=== PATIENT | male | born 1970 | race Two or more races ===

== ENCOUNTER 2018-02-03 11:50 | Emergency (ER) | payer OTHER, MEDICAID ==
[2018-02-03] MEDS ORDERED: OLANZapine 10 MG/2 ML VIAL ONE (11:57)
[2018-02-03 12:21] LABS: PLATELET COUNT 193 10^3/uL (150-400)
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
[2018-02-03 13:03] VITALS: O2SAT 92
[2018-02-03] MEDS ORDERED: HALOPERIDOL LACT 5 MG/ML INJ IM ONE (13:29)
[2018-02-03] MEDS ORDERED: HALOPERIDOL LACT 5 MG/ML INJ ONE (13:30)
[2018-02-03] MEDS ORDERED: OLANZapine DISINTEGR 10 MG TAB PO ONE (13:46)
[2018-02-03] MEDS ORDERED: OLANZapine DISINTEGR 10 MG TAB ONE (13:47)
[2018-02-03 16:26] VITALS: RESP 16
[2018-02-03 23:26] VITALS: BP 131/80; PULSE 91; TEMP 98.4
== END 2018-02-04 00:23 ==
DX: F31.4 Bipolar disorder, current episode depressed, severe, without psychotic features (principal); Z79.4 Long term (current) use of insulin
CPT/HCPCS: 99285; J1630; 80305; G0480

== ENCOUNTER 2018-05-02 12:24 | Emergency (ER) | payer OTHER, MEDICAID ==
[2018-05-02 12:37] VITALS: BP 102/62
[2018-05-02 12:44] LABS: PLATELET COUNT 196 10^3/uL (150-400)
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
[2018-05-02] MEDS ORDERED: HALOPERIDOL LACT 5 MG/ML INJ IM ONE (14:07)
== END 2018-05-02 15:34 ==
LOC: EDUNIT#
DX: F31.30 Bipolar disorder, current episode depressed, mild or moderate severity, unspecified (principal); E11.9 Type 2 diabetes mellitus without complications; I10 Essential (primary) hypertension; Z79.4 Long term (current) use of insulin
CPT/HCPCS: 96372; 99285; J1630; G0480

== ENCOUNTER 2018-06-04 22:13 | Emergency (ER) | payer OTHER, MEDICAID ==
[2018-06-04 22:43] LABS: PLATELET COUNT 206 10^3/uL (150-400)
[2018-06-04] MEDS ORDERED: MAG HYDROX/AL HYDROX/SIMETH 30 ML UDCUP PO ONE (23:39)
[2018-06-04] MEDS ORDERED: HYOSCYAMINE SULFATE 0.125 MG TAB PO ONE (23:39)
[2018-06-04] MEDS ORDERED: FAMOTIDINE 20 MG TAB PO ONE (23:39)
[2018-06-04] MEDS ORDERED: LIDOCAINE 2% VISCOUS 15 ML UDCUP PO ONE (23:39)
--- NOTE | 2018-06-04 23:43 | EDPHY ---
H & P Smoking Status: Never smoked Time Seen by Provider: 06/04/18 23:32 HPI/ROS: CHIEF COMPLAINT: Abdominal pain HISTORY OF PRESENT ILLNESS: 48-year-old male presents to the emergency department in custody of the correction he with abdominal pain. The patient states that he noted the pain shortly after lunch. He has had problems with GERD in the past. He did try an acid in correction which did improve his symptoms but then symptoms came back after he ate dinner. He denies any reported trauma. He did vomit once today right after lunch. No diarrhea. No hematemesis. No back pain. No chest pain or difficulty breathing. REVIEW OF SYSTEMS: Constitutional: No fever, no chills. Eyes: No double or blurry vision. ENT: No sore throat. Respiratory: No cough, no shortness of breath. Cardiac: No chest pain. Gastrointestinal: Abdominal pain. One episode of vomiting. No diarrhea Genitourinary: No dysuria. Musculoskeletal: No neck or back pain. Skin: No rashes. Neurological: No headache. (Anne Dinh) Past Medical/Surgical History: GERD, insulin-dependent diabetes, hypertension, bipolar, ADD, hepatitis C (Anne Dinh) Social History: Currently in correction (Anne Dinh) Physical Exam: General Appearance: Alert, no distress. Eyes: Pupils equal and round. Extraocular motions are all intact. ENT: Mouth: Mucous membranes moist. Respiratory: No wheezing, rhonchi, or rales, lungs are clear to auscultation. Cardiovascular: Regular rate and rhythm. Gastrointestinal: Abdomen is soft. Tenderness with palpation the epigastric area. There is no rebound, guarding or masses noted. No CVA tenderness bilaterally. Neurological: Alert and oriented x 3, cranial nerves II through XII grossly intact Skin: Warm and dry, no rashes. Musculoskeletal: Nontender to palpate along the cervical, thoracic or lumbar spine. Neck is supple. Extremities: Full range of motion and no peripheral edema. Psychiatric: Patient is oriented X 3, there is no agitation. (Anne Dinh) Constitutional: Initial Vital Signs Temperature (C) 36.7 C 06/04/18 22:18 Heart Rate 122 H 06/04/18 22:18 Respiratory Rate 20 06/04/18 22:18 Blood Pressure 158/119 H 06/04/18 22:18 O2 Sat (%) 95 06/04/18 22:18 O2 Delivery Mode Room Air Allergies/Adverse Reactions: No Known Allergies Allergy (Verified 06/04/18 22:18) Home Medications: Medication Instructions Recorded Insulin Regular, Human 02/03/18 Lisinopril 02/03/18 Clotrimazole 1% 06/04/18 Gabapentin 06/04/18 Geodon 06/04/18 Lipitor 06/04/18 Pepto-Bismol 06/04/18 Tums 500MG (*) 06/04/18 Zoloft 25mg (*) 06/04/18 Medical Decision Making ED Course/Re-evaluation: 48-year-old male presents to the emergency department with abdominal pain. The patient was given GI cocktail and his symptoms had completely resolved. Laboratory studies including CBC, chemistries, LFTs are all within normal limits. Patient was also given 20 mg of Pepcid p. O. In the emergency department. He will continue this daily the next 2 weeks. He was given GI referral if his symptoms do not improve. He was instructed to return to the emergency department sooner if he developed increasing pain or any other concerns. I do not think imaging studies are indicated. Patient has a benign abdomen. ( Anne Dinh) PHYSICIAN DOCUMENTATION: The patient was evaluated and managed by the Physician Glass [employer]rier. My co- signature indicates that I have reviewed this chart and I agree with the findings and plan of care as documented. I am the secondary supervising physician. (Jada Zavala) Differential Diagnosis: Including but not limited to GERD, peptic ulcer disease, cholecystitis, cholelithiasis, hepatitis (Anne Dinh) - Data Points Laboratory Results: Laboratory Results 06/04/18 22:32 06/04/18 22:32 Medications Given: Discontinued Medications Al Hydroxide/Mg Hydroxide (Maalox Susp) 30 ml PO ONCE ONE Stop: 06/04/18 23:40 Last Admin: 06/04/18 23:47 Dose: 30 ml Famotidine (Pepcid) 20 mg PO EDNOW ONE Stop: 06/04/18 23:40 Last Admin: 06/04/18 23:47 Dose: 20 mg Hyoscyamine Sulfate (Levsin, Hyomax-Sl) 0.25 mg PO ONCE ONE Stop: 06/04/18 23:40 Last Admin: 06/04/18 23:47 Dose: 0.25 mg Lidocaine (Lidocaine 2% Viscous) 15 ml PO ONCE ONE Stop: 06/04/18 23:40 Last Admin: 06/04/18 23:47 Dose: 15 ml Departure - Departure Disposition: Home, Routine, Self-Care Clinical Impression: Abdominal pain Condition: Good Instructions: Acute Abdominal Pain (ED) Additional Instructions: Abdominal Pain: Return to the Emergency Department immediately for increasing pain, fever, vomiting, or if not completely better in 8-12 hours. Pepcid 20mg daily for 2 weeks then prn. Referrals: Carlyn New MD [Medical Doctor] - 2-3 days, if not improved ( Coding Clerk sales representative education courses)
[2018-06-05 00:10] VITALS: BP 97/77
== END 2018-06-05 00:40 | disposition home or self-care (01) ==
DX: R10.13 Epigastric pain (principal); I10 Essential (primary) hypertension; E11.9 Type 2 diabetes mellitus without complications; Z79.4 Long term (current) use of insulin